=== PATIENT | female | born 1965 | race Caucasian/White ===

== ENCOUNTER 2021-10-28 17:44 | Emergency (ER) | payer MEDICARE, OTHER ==
[~2021-10-28 17:44] MED LIST: CEFDINIR300 MG PO; ESTRADIOL; PROAIR HFA8.5 GM INH; PROGESTRONE; PROTONIX 40MG T40 MG PO; REPATHA PU420 MG/3.5 SC; SINGULAIR10 MG PO; SYMBICORT 80-10.2 GM INH; TENORMIN50 MG PO; TOPAMAX100 MG PO; TOPROL XL 50 MG50 MG PO; [UNRECOGNIZED DRUG - REMARK]
[2021-10-28 19:27] LABS: BASOPHIL 0.7 % (0-2); EOSINOPHIL 5.7 % (0-5); HCT 44.3 % (37.0-47.0); HGB 15.1 g/dl (12.5-16.0); LYMPHOCYTE 29.3 % (15-48); MCH 31.3 pg (25.0-31.0); MCHC 34.1 g/dL (32.0-36.0); MCV 91.7 fL (78.0-100.0); MONOCYTE 6.3 % (0-12); MPV 10.8 fL (6.0-9.5); NEUTROPHIL 57.5 % (41-80); NRBC 0; PLT 257 K/uL (150-400); RBC 4.83 M/uL (4.20-5.40); RDW 12.9 % (11.5-14.0); WBC 10.3 K/uL (4.0-10.5)
[2021-10-28 19:39] LABS: ALBUMIN 3.8 g/dL (3.4-5.0); BILIRUBIN - TOTAL 0.3 mg/dL (0.2-1.0); BUN/CREAT RATIO (CALC) 14.5 RATIO; CREATININE 1.1 mg/dL (0.51-0.95); GLOBULIN (CALCULATION) 3.4 g/dL; POTASSIUM 3.6 mmol/L (3.5-5.1); TOTAL PROTEIN 7.2 g/dL (6.4-8.2)
[2021-10-28 20:38] LABS: BILIRUBIN NEGATIVE (NEGATIVE); BLOOD TRACE-INTACT Ery/uL (NEGATIVE); CLARITY CLEAR (CLEAR); COLOR YELLOW (YELLOW); GLUCOSE (U) NORMAL (NORMAL); LEUKOCYTES NEGATIVE Leu/uL (NEGATIVE); NITRITE NEGATIVE (NEGATIVE); PROTEIN NEGATIVE (NEGATIVE); UROBILINOGEN 0.2 mg/dL (0.2-1.0)
[2021-10-28] MEDS ORDERED: ONDANSETRON ODT4 MG PO (20:39)
[2021-10-28] MEDS ORDERED: PHENERGAN25 M1 PO (20:39)
[2021-10-28 20:47] LABS: BACTERIA TRACE; URINARY RBC RARE; URINARY WBC RARE
[2021-10-28 20:50] LABS: CORONAVIRUS 2019 SARS-COV-2 NEGATIVE (NEGATIVE); INFLUENZA A NAA NEGATIVE (NEGATIVE)
== END 2021-10-28 21:10 | disposition home or self-care (01) ==
LOC: FER 17:44
PROVIDERS: Emergency Medicine
DX: K52.1 Toxic gastroenteritis and colitis (principal); R11.2 Nausea with vomiting, unspecified; T38.3X5A Adverse effect of insulin and oral hypoglycemic [antidiabetic] drugs, initial encounter; I10 Essential (primary) hypertension; E11.9 Type 2 diabetes mellitus without complications; F17.200 Nicotine dependence, unspecified, uncomplicated; Z20.822 Contact with and (suspected) exposure to COVID-19; Z28.310 Unvaccinated for COVID-19; Z79.84 Long term (current) use of oral hypoglycemic drugs; Z88.0 Allergy status to penicillin; Z88.2 Allergy status to sulfonamides; Z88.5 Allergy status to narcotic agent
CPT/HCPCS: 36415; 80053; 81001; 85025; J2405; J7030; U0002

== ENCOUNTER 2021-12-25 12:19 | Emergency (ER) | payer MEDICARE, OTHER ==
[~2021-12-25 12:19] MED LIST changes: +ONDANSETRON ODT4 MG PO; +PHENERGAN25 M1 PO
[2021-12-25 13:45] LABS: BASOPHIL 0.2 % (0-2); EOSINOPHIL 0.2 % (0-5); HCT 44.4 % (37.0-47.0); HGB 14.9 g/dl (12.5-16.0); LYMPHOCYTE 26.8 % (15-48); MCH 31.3 pg (25.0-31.0); MCHC 33.6 g/dL (32.0-36.0); MCV 93.3 fL (78.0-100.0); MPV 11.8 fL (6.0-9.5); NEUTROPHIL 57.2 % (41-80); NRBC 0; PLT 146 K/uL (150-400); RBC 4.76 M/uL (4.20-5.40); WBC 5.2 K/uL (4.0-10.5)
[2021-12-25 13:57] LABS: BUN/CREAT RATIO (CALC) 10.3 RATIO; CREATININE 1.46 mg/dL (0.51-0.95); POTASSIUM 3.5 mmol/L (3.5-5.1)
== END 2021-12-25 15:13 | disposition home or self-care (01) ==
LOC: FER 12:19
PROVIDERS: Emergency Medicine
DX: I95.9 Hypotension, unspecified (principal); N17.9 Acute kidney failure, unspecified; U07.1 COVID-19; I10 Essential (primary) hypertension; E11.9 Type 2 diabetes mellitus without complications; F17.210 Nicotine dependence, cigarettes, uncomplicated; Z88.0 Allergy status to penicillin; Z88.2 Allergy status to sulfonamides; Z79.84 Long term (current) use of oral hypoglycemic drugs; Z79.899 Other long term (current) drug therapy
CPT/HCPCS: 36415; 71045; 80048; 85025; J7030